=== PATIENT | female | born 1950 | race Caucasian/White ===

== ENCOUNTER → 2016-07-22 | Outpatient (CLI) | payer OTHER | LOC: BMCIMAGING 07:35 | PROVIDERS: ATTEND Family Medicine | DX: Z12.31 Encounter for screening mammogram for malignant neoplasm of breast (principal) | CPT/HCPCS: G0202 ==

== ENCOUNTER → 2016-11-28 | Outpatient (CLI) | payer OTHER | LOC: FIMAGING 16:01 | PROVIDERS: ATTEND Family Medicine | DX: R07.81 Pleurodynia (principal) ==

== ENCOUNTER → 2016-11-30 | Outpatient (CLI) | payer OTHER | LOC: FIMAGING 12:05 | PROVIDERS: ATTEND Family Medicine | DX: N64.4 Mastodynia (principal) ==

== ENCOUNTER 2016-12-05 12:35 | Inpatient (IN) | payer OTHER ==
--- NOTE | 2016-12-05 12:52 | CPEKG ---
Heart Rate: 81 RR Interval: 741 P-R Interval: 148 QRSD Interval: 96 QT Interval: 368 QTC Interval: 428 P Daisy: 64 QRS Daisy: 44 T Wave Daisy: 7 EKG Severity - ABNORMAL ECG - EKG Impression: SINUS RHYTHM EKG Impression: LEFT ATRIAL ABNORMALITY EKG Impression: BORDERLINE T ABNORMALITIES, ANTERIOR LEADS Electronically Signed By: Delia Westfall 05-Dec-2016 19:41:54
[2016-12-05 13:12] LABS: % IMMATURE GRANULYOCYTES 0.2 % (0.0-1.1); ABSOLUTE IMMATURE GRANULOCYTES 0.01 10^3/uL (0.00-0.10); ADD DIFF? NO; ADD MORPH? NO; ADD SCAN? NO; ATYPICAL LYMPHOCYTE FLAG 20 (0-99); FRAGMENT RBC FLAG 0 (0-99); HEMATOCRIT 42.6 % (38.0-47.0); HEMOGLOBIN 14.6 g/dL (12.6-16.3); LEFT SHIFT FLG 0 (0-99); LIPEMIA HEMOLYSIS FLAG 90 (0-99); MEAN CELL HEMOGLOBIN 30.7 pg (27.9-34.1); MEAN CELL HEMOGLOBIN CONCENTR. 34.3 g/dL (32.4-36.7); MEAN CELL VOLUME 89.7 fL (81.5-99.8); MEAN PLATELET VOLUME 10.5 fL (8.7-11.7); PLATELET CLUMPS FLAG 0 (0-99); PLATELET COUNT 184 10^3/uL (150-400); RED BLOOD CELL COUNT 4.75 10^6/uL (4.18-5.33); RED CELL DISTRIBUTION WIDTH 12.7 % (11.5-15.2)
--- NOTE | 2016-12-05 14:16 | EDPHY ---
H & P Time Seen by Provider: 12/05/16 13:58 HPI/ROS: CHIEF COMPLAINT: Chest pressure, left arm pain HISTORY OF PRESENT ILLNESS: 66-year-old female with a history of DVT, on Coumadin, presents with chest pressure and left arm pain. She was sitting at her desk at 9:45 a.m. this morning and developed a pressure in her left upper extremity, rated 6/10. She was unable to work because of the discomfort and went home. When she arrived here, she developed a pressure in her chest, rated 6/10. The chest pressure started approximately 45 minutes ago. No associated dizziness or shortness breath. No known history of cardiopulmonary disease. Cardiac risk factors positive for family history (father at 57yo after CABG ) and hyperlipidemia. Nonsmoker; no hypertension, diabetes. REVIEW OF SYSTEMS: Constitutional: No fever, no chills Eyes: No visual changes ENT: No sore throat Respiratory: No cough, no shortness of breath Gastrointestinal: No nausea, no vomiting, no abdominal pain Genitourinary: No hematuria, no dysuria Skin: No rash Neurological: No headache, no numbness, no weakness Psychiatric: No depression Past Medical/Surgical History: DVT Hypothyroidism Social History: Smoking Status: Never smoked Physical Exam: General Appearance: Alert, pleasant Eyes: Pupils equal and round, no conjunctival pallor or injection ENT, Mouth: Mucous membranes moist Neck: Normal inspection, no tenderness Respiratory: Lungs are clear to auscultation Cardiovascular: Regular rate and rhythm Gastrointestinal: Abdomen is soft and nontender Neurological: A&O, nonfocal, normal gait Skin: Warm and dry, no rash Extremities: left upper extremity-no swelling or tenderness Vascular: 1+ radial pulse, brisk capillary refill Psychiatric: Mood and affect normal Constitutional: Initial Vital Signs Temperature (C) 36.5 C 12/05/16 12:40 Heart Rate 82 12/05/16 12:40 Respiratory Rate 18 12/05/16 12:40 Blood Pressure 188/118 H 12/05/16 12:40 O2 Sat (%) 100 12/05/16 12:40 O2 Delivery Mode Room Air Allergies/Adverse Reactions: Trees & grasses Allergy (Intermediate, Uncoded 06/30/10 11:28) allergic rhinitis Home Medications: Medication Instructions Recorded Bupropion HCl [Wellbutrin XL 300mg] 300 mg PO DAILY 03/23/12 Alendronate Sodium [Fosamax 70 MG 70 mg PO STEWART@0700 12/05/16 (*)] Calcium Carbonate [Calcium] 1,000 mg PO DAILY 12/05/16 Cetirizine [ZyrTEC 10 mg (*)] 10 mg PO DAILY 12/05/16 Herbals/Supplements -Info Only 1 ea PO DAILY 12/05/16 Levothyroxine [Synthroid 88 mcg 88 mcg PO DAILY06 12/05/16 (*)] Warfarin Sodium [Coumadin 5MG (*)] 7.5 mg PO HS 12/05/16 traZODone [traZODONE 50MG (*)] 50 mg PO HS 12/05/16 Medical Decision Making - Diagnostics EKG Interpretation: EKG interpreted by me reveals normal sinus rhythm, rate 81, P T-wave changes in leads 3, AVF, V3 and V4. Imaging Results: Imaging Impressions Chest X-Ray 12/05/16 12:51 Impression: Clear lungs. No pneumonia, effusion, or pneumothorax. ED Course/Re-evaluation: This patient presents with chest and left arm pressure, concerning for acute coronary syndrome. Stat EKG reveals no evidence of ischemia or dysrhythmia. Stat chest x-ray is unremarkable. She was placed on a cardiac surgeon. Given that she is on Coumadin, she was not placed on aspirin. She declined pain medications. Initial troponin is normal. I feel that she requires admission for further cardiac evaluation. The hospitalist service was consulted for admission. Differential Diagnosis: Differential diagnosis includes though it is not limited to pneumonia, pneumothorax, pulmonary embolism, aortic dissection, pericarditis, acute coronary syndrome. - Data Points Laboratory Results: Laboratory Results 12/05/16 13:00 12/05/16 13:00 12/05/16 12/05/16 12/05/16 13:00 13: 13:00 WBC 4.10 10^3/uL 10^3/uL (3.80-9.50) RBC 4.75 10^6/uL 10^6/uL (4.18-5.33) Hgb 14.6 g/dL g/dL (12.6-16.3) Hct 42.6 % % (38.0-47.0) MCV 89.7 fL fL (81.5-99.8) MCH 30.7 pg pg (27.9-34.1) MCHC 34.3 g/dL g/dL (32.4-36.7) RDW 12.7 % % (11.5-15.2) Plt Count 184 10^3/uL 10^3/uL (150-400) MPV 10.5 fL fL (8.7-11.7) Neut % (Auto) 56.0 % % (39.3-74.2) Lymph % (Auto) 31.5 % % (15.0-45.0) [place] % (Auto) 8.8 % % (4.5-13.0) Eos % (Auto) 2.0 % % (0.6-7.6) Baso % (Auto) 1.5 % % (0.3-1.7) Nucleat RBC Rel Count 0.0 % % (0.0-0.2) Absolute Neuts (auto) 2.30 10^3/uL 10^3/uL (1.70-6.50) Absolute Lymphs (auto) 1.29 10^3/uL 10^3/uL (1.00-3.00) Absolute Monos (auto) 0.36 10^3/uL 10^3/uL (0.30-0.80) Absolute Eos (auto) 0.08 10^3/uL 10^3/uL (0.03-0.40) Absolute Basos (auto) 0.06 10^3/uL 10^3/uL (0.02-0.10) Absolute Nucleated RBC 0.00 10^3/uL 10^3/uL (0-0.01) Immature Gran % 0.2 % % (0.0-1.1) Immature Gran # 0.01 10^3/uL 10^3/uL (0.00-0.10) PT 25.3 SEC H SEC (12.0-15.0) INR 2.28 H (0.83-1.16) Sodium 139 mEq/L mEq/L (134-144) Potassium 3.8 mEq/L mEq/L (3.5-5.2) Chloride 103 mEq/L mEq/L (97-110) Carbon Dioxide 22 mEq/l mEq/l (22-31) Anion Gap 14 mEq/L mEq/L (8-16) BUN 16 mg/dL mg/dL (7-23) Creatinine 1.0 mg/dL mg/dL (0.6-1.0) Estimated GFR 56 Glucose 99 mg/dL mg/dL (70-100) Calcium 10.1 mg/dL mg/dL (8.5-10.4) Troponin I < 0.012 ng/mL ng/mL (0.000-0.034) Departure - Departure Disposition: [facility] Inpatient Acute Clinical Impression: Chest pain Qualifiers: Chest pain type: precordial pain Qualified Code(s): R07.2 - Precordial pain Condition: Good
[2016-12-05 14:25] LABS: INR 2.28 (0.83-1.16); PROTIME(PATIENT) 25.3 SEC (12.0-15.0)
[2016-12-05 14:31] LABS: ANION GAP 14 mEq/L (8-16); CALCIUM 10.1 mg/dL (8.5-10.4); CARBON DIOXIDE 22 mEq/l (22-31); CHLORIDE 103 mEq/L (97-110); GLOMERULAR FILTRATION RATE 56; GLUCOSE 99 mg/dL (70-100); POTASSIUM 3.8 mEq/L (3.5-5.2); SODIUM 139 mEq/L (134-144)
[2016-12-05 14:42] LABS: TROPONIN I < 0.012 ng/mL (0.000-0.034)
[2016-12-05] MEDS ORDERED: ACETAMINOPHEN 325 MG TAB PO PRN (15:29)
[2016-12-05] MEDS ORDERED: ONDANSETRON DISINTEGRATING 4 MG TAB PO PRN (15:29)
[2016-12-05] MEDS ORDERED: ONDANSETRON 4 MG/2 ML VIAL IVP PRN (15:29)
[2016-12-05] MEDS ORDERED: hydrALAZINE 20 MG/ML VIAL IVP PRN (17:16)
--- NOTE | 2016-12-05 17:58 | GHP ---
[f rep st] HISTORY AND PHYSICAL DATE OF ADMISSION: 12/05/2016 CHIEF COMPLAINT: Chest pain. HISTORY: This is a 66-year-old female with past medical history that includes a DVT, as well as unco ntrolled hypertension and hyperlipidemia, who presents with acute onset of substernal chest pain. Reinaldo sanders patient notes it began this morning at approximately 9:30 a.m. while she was sitting at her desk. Initially felt like "elephant" on her chest with radiation to her left arm. She notes that the pain in her arm felt very dull and deep. She denied any associated nausea or diaphoresis. She did feel s hort of breath and lightheaded during this episode. She notes it lasted several hours, but has resol delbert since arrival in the ER this afternoon. She does note that her blood pressure has been elevated for quite some time. It sounds as if she maybe did not have very good care established up until rece ntly. She notes that she had a physical exam in November, at which time she was told that she has a very high cholesterol, and also was noted to have elevated blood pressures. She notes that she has been checking her blood pressure at home, and it is always at least 240 systolic. She states that too sanders thought her primary care physician wanted to start her on some medication, but agreed to allow her to continue to try to improve it with diet and exercise. She notes she has never had similar symptom s in the past in terms of her chest pain. She did have a stress test she believes approximately 15 y ears ago, which was normal. PAST MEDICAL HISTORY: 1. Lower extremity DVT, on chronic anticoagulation. 2. Hypothyroidism. 3. Untreated hyperlipidemia. 4. Untreated hypertension. PAST SURGICAL HISTORY: Vein ablation. FAMILY HISTORY: Father at age 57 shortly after undergoing a 3-vessel CABG. Mother is alive and well at age 99. SOCIAL HISTORY: The patient is . She is a nonsmoker. She does drink socially. She has 3 ch ildren. REVIEW OF SYSTEMS: A 10-point review of systems obtained negative except as per HPI. HOME MEDICATIONS: 1. Zyrtec. 2. Coumadin. 3. Fosamax. 4. Trazodone. 5. Synthroid. 6. Calcium. 7. Bupropion. ALLERGIES: No known drug allergies. PHYSICAL EXAM: VITAL SIGNS: BP 168/96, heart rate 93, respiratory rate 16, O2 sats 100% on room air , temperature is 36.5. GENERAL APPEARANCE: This is a well-developed/well-nourished female. She is awake and alert. She is in no acute distress. EYES: Anicteric. HENT: Oropharynx clear. CARDIOVA SCULAR: Regular rate and rhythm, no murmurs, rubs, or gallops. PULMONARY: CTA bilaterally. Normal work of breathing. ABDOMEN: Soft, nontender, nondistended. EXTREMITIES: No clubbing, cyanosis, o r edema. SKIN: Warm dry well perfused. NEURO/PSYCH: Oriented and appropriate. CLINICAL DATA: CBC reviewed and is completely unremarkable. INR noted to be 2.28. Chemistry, likew ise, unremarkable. Initial troponins less than 0.012. The patient did have a cholesterol panel 2 we eks ago showing an LDL of 209, HDL of 57. Chest x-ray, personally reviewed and interpreted, shows no acute findings. EKG personally reviewed a nd interpreted shows sinus rhythm. Borderline T-wave flattening anteriorly. ASSESSMENT/PLAN: This is a 66-year-old female with past medical history of DVT, as well as uncontrol led hypertension and hyperlipidemia, who presents with chest pain. 1. Chest pain. The patient does have risk factors including family history, uncontrolled hypertensi on, and hyperlipidemia. Initial workup including troponin and EKG are nondiagnostic. Her history, h owever, is concerning. At this point, plan will be to monitor on telemetry with serial EKGs and trop onins. We will obtain a nuclear stress test in the morning should she not have any increased troponi ns overnight. 2. Hypertension. Again, this has been uncontrolled. She notes that she has had high blood pressure for at least months, if not longer, that has never been on medications. We will start lisinopril an d p.r.n. hydralazine. 3. Hyperlipidemia. Again, with an LDL of 209 I do not believe this will be controllable with diet a lone. Discussed with her that at this point would recommend she start a statin, and she is amenable to that. 4. History of deep vein thrombosis. The patient currently therapeutic on her Coumadin, which will b e continued. 5. Disposition: Observation status. I suspect she will need less than 48 hours stay for evaluation and management of above. 6. The patient is new to my care. Old records reviewed, summarized as per HPI and past medical hist ory. Care plan reviewed with ER physician, including plans for admission to telemetry. /[id number]/MODL
[2016-12-05 20:55] LABS: HEMOGLOBIN A1C 5.3 % (4.0-6.0)
[2016-12-05] MEDS: traZODone 50 MG TAB PO SCH (20:59)
[2016-12-05] MEDS ORDERED: WARFARIN SODIUM 5 MG TAB PO SCH (21:00)
[2016-12-06 04:11] LABS: % IMMATURE GRANULYOCYTES 0.2 % (0.0-1.1); ABSOLUTE IMMATURE GRANULOCYTES 0.01 10^3/uL (0.00-0.10); ADD DIFF? NO; ADD MORPH? NO; ADD SCAN? NO; ATYPICAL LYMPHOCYTE FLAG 10 (0-99); FRAGMENT RBC FLAG 0 (0-99); HEMATOCRIT 38.6 % (38.0-47.0); HEMOGLOBIN 13.2 g/dL (12.6-16.3); LEFT SHIFT FLG 0 (0-99); LIPEMIA HEMOLYSIS FLAG 90 (0-99); MEAN CELL HEMOGLOBIN 30.5 pg (27.9-34.1); MEAN CELL HEMOGLOBIN CONCENTR. 34.2 g/dL (32.4-36.7); MEAN CELL VOLUME 89.1 fL (81.5-99.8); MEAN PLATELET VOLUME 10.7 fL (8.7-11.7); PLATELET CLUMPS FLAG 0 (0-99); PLATELET COUNT 176 10^3/uL (150-400); RED BLOOD CELL COUNT 4.33 10^6/uL (4.18-5.33); RED CELL DISTRIBUTION WIDTH 12.8 % (11.5-15.2)
[2016-12-06 04:27] LABS: INR 2.31 (0.83-1.16); PROTIME(PATIENT) 25.6 SEC (12.0-15.0)
[2016-12-06 04:31] LABS: ALANINE AMINOTRANSFERASE 33 IU/L (9-52); ALKALINE PHOSPHATASE 33 IU/L (38-126); ANION GAP 10 mEq/L (8-16); ASPARTATE AMINOTRANSFERASE 20 IU/L (14-46); BILIRUBIN,TOTAL 1.3 mg/dL (0.1-1.4); CALCIUM 9.3 mg/dL (8.5-10.4); CARBON DIOXIDE 19 mEq/l (22-31); CHLORIDE 111 mEq/L (97-110); GLOMERULAR FILTRATION RATE 56; GLUCOSE 88 mg/dL (70-100); MAGNESIUM 2.1 mg/dL (1.6-2.3); POTASSIUM 4.3 mEq/L (3.5-5.2); SODIUM 140 mEq/L (134-144); TOTAL PROTEIN 6.6 g/dL (6.3-8.2)
[2016-12-06 04:41] LABS: TROPONIN I < 0.012 ng/mL (0.000-0.034)
[2016-12-06] MEDS: LEVOTHYROXINE 88 MCG TAB PO SCH (06:33)
[2016-12-06] MEDS: CETIRIZINE 10 MG TAB PO SCH (08:45)
[2016-12-06] MEDS ORDERED: LISINOPRIL 10 MG TAB PO SCH (09:00)
[2016-12-06] MEDS ORDERED: ASPIRIN EC 325 MG TAB PO SCH (09:00)
[2016-12-06] MEDS: ATORVASTATIN CALCIUM 40 MG TAB PO SCH (09:59)
[2016-12-06] MEDS: buPROPion XL 150 MG TAB PO SCH (09:59)
[2016-12-06] MEDS: CALCIUM CARBONATE 500 MG TAB PO SCH (09:59)
--- NOTE | 2016-12-06 12:12 | ASMTCMCOM ---
CM Note CM Note Notes: 12/06/2016 Case Management Note: Met w/pt. 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 Plans for to take home at d/c. No case management d/c needs identified d/t pt age and activity levels prior to admission. Case Managment d/c poc: Home independent w/follow up as directed by . Date Signed: 12/06/2016 12:11 PM Electronically Signed By:Lurdes Vance RN
[2016-12-06] MEDS ORDERED: REGADENOSON 0.4 MG/5 ML SYR IVP ONE (12:44)
--- NOTE | 2016-12-06 16:12 | HOSPPROG ---
Hospitalist Progress Note Assessment/Plan: 66 yo F with PMH of DVT, HTN, HLD and family hx of early onset CAD presenting with chest pain # chest pain: with both typical and atypical features. Trops negative, no ischemic changes on ECG. Discussed with radiology, ? small infarct inferolateral wall of LV with small amount of rishi infarct ischemia suspected. Discussed with cardiology who will see patient in consultation and determine if she requires cath for further evaluation. # DVT: patient currently on anticoagulation for this, has had a hx of superficial clot in the past as well, she states that everyone in her family has hx of clotting, generally after surgery or injury, but no known familial hypercoagulable state. # HTN: was quite hypertensive on arrival but today BP is in the low normal range , will hold off on starting any scheduled bp meds and have her continue to f/u with her PCP # HLD: with a LDL > 200 patient will require statin to get this down, started on atorvastatin # hypothyroid: continue synthroid # observation for now, if cardiology feels angiogram is indicated will need to transition to IP Plan reviewed with cardiology and radiology as above. Subjective: no acute overnight events, patient feeling better today Objective: Vital Signs Temp Pulse Resp BP Pulse Ox 36.8 C 84 14 125/83 H 92 12/06/16 15:20 12/06/16 15:20 12/06/16 15:20 12/06/16 15:20 12/06/16 15:20 Laboratory Results 12/06/16 03:46 12/06/16 03:46 12/05/16 12/06/16 12/07/16 05:59 05:59 05:59 Intake Total 520 200 Balance 520 200 PT 25.6 SEC (12.0-15.0) H 12/06/16 03:46 INR 2.31 (0.83-1.16) H 12/06/16 03:46 awake alert nad anicteric op clear rrr no mrg cta b soft nt nd no cce warm dry well perfused ICD10 Worksheet Patient Problems: Problems Problem Status Onset Chest pain Acute
--- NOTE | 2016-12-06 17:30 | CPR ---
[f rep st] NONINVASIVE CARDIAC PROCEDURE REPORT PROCEDURE: Lexiscan nuclear stress test. ORDERING PHYSICIAN: Dr. Errol Duque, hospitalist. REASON FOR TEST: Chest discomfort. FINDINGS: Resting EKG shows a regular sinus rhythm with no ischemic changes. Resting blood pressure 128/76, resting heart rate 74, oxygen saturation 96%. She complains of a mild headache prior to emily ting, otherwise asymptomatic. STRESS PORTION: Lexiscan was injected rapidly, followed by saline flush. Cardiolite was then inject ed, followed by saline flush. Her maximum heart rate was 102, maximum blood pressure 120/76. Oxygen saturation 98%. She had increase in headache, otherwise, asymptomatic. No EKG changes. RECOVERY: Resting blood pressure 120/76, resting heart rate 94, oxygen sat saturation 97%. There we re no EKG changes. At this time, she currently is stable for nuclear imaging. /[id number]/MODL
--- NOTE | 2016-12-06 19:23 | PDCARPN ---
Cardiology Progress Note Assessment/Plan: Assessment: Chest pain with Lexiscan today showing area of inferolateral suspect ischemia. Mild hypokinesis inferior wall. Small inferiolateral rishi-infarct ischemia suspect. Plan for cardiac angiogram. She is on Coumadin for DVT. INR today 2.3. Will need to drift INR down to 1.7 prior to cath. HOLD Coumadin. Will check INR in the AM. Plan Cath for 12/08 with Errol Cintron MD. Plan: HOLD Coumadin. Once INR 1.7 will cath. INR in AM. 12/06/16 19:18 Objective: Vital Signs (8 Hrs) Temp Pulse Resp BP Pulse Ox 12/06/16 15:20 36.8 C 84 14 125/83 H 92 12/06/16 11:34 36.6 C 80 12 115/74 95 Intake/Output (24 Hrs) 12/05/16 12/06/16 12/07/16 05:59 05:59 05:59 Intake Total 520 800 Balance 520 800 Intake: Oral (ml) 520 800 Other: Weight 67.585 kg 67 kg Intake Quantity Yes Sufficient Number of Voids Toilet 1 Result Diagrams: 12/06/16 03:46 12/06/16 03:46 Cardiac Labs: Cardiac Lab Results (72 Hrs) 12/06/16 12/05/16 03:46 20:36 Troponin I < 0.012 < 0.012 - Physical Exam Constitutional: no apparent distress Cardiovascular: regular rate and rhythm, no murmurs, no gallops Respiratory: clear to auscultate bilat, no crackles, no wheezes Skin: no rashes, warm, no edema Neurologic: AAOx3, CN II-XII grossly intact Psychiatric: cooperative, interactive ICD10 Worksheet Patient Problems: Problems Problem Status Onset Chest pain Acute
--- NOTE | 2016-12-06 21:16 | GCON ---
[f rep st] CONSULTATION CARDIOLOGY CONSULTATION DATE OF CONSULTATION: 12/06/2016 REASON FOR CONSULTATION: Chest pain with abnormal nuclear stress test. HISTORY OF PRESENT ILLNESS: This is a 66-year-old female, with a history of DVTs, hypertension, hype rlipidemia. She presented to the hospital with acute onset of substernal chest pain. It had started early in the morning of December 05, 2016, while at work. She described it as feeling as if an elepha nt was on her chest, with associated left arm pain. She had no nausea or sweating. She did feel sli ghtly short of breath. This discomfort persisted for several hours and she presented to the emergenc y department for further evaluation. She had a recent physical with her PCP, and was told at that time that her cholesterol levels were el evated, as well as her blood pressure, which has been a long-standing problem. She had been started on medication by her primary care physician; however, she decided she preferred trying diet and exerc ise to manage her hypertension and hyperlipidemia. She is anxious about her chest discomfort, as she does have a family history of coronary artery disease. Her father at age 57 after having a cor onary artery bypass grafting surgery. She did have a nuclear stress test done, which does show hypokinesis of the inferior wall. There is a suspicious small area of infarct of the inferolateral wall, and a small amount of periinfarct ische claudy. At time of visit, she is in no distress and is painfree. FAMILY HISTORY: Her father of coronary artery disease at age 57, he had a history of 3-vessel b ypass surgery. PAST MEDICAL HISTORY: 1. DVT of her right lower extremity. Appropriately, she is on chronic anticoagulation. 2. Hypothyroid. 3. Hypertension. 4. Hyperlipidemia. PAST SURGICAL HISTORY: Vein ablation. SOCIAL HISTORY: She is . She has 3 children. She drinks alcohol socially and has never smok ed. REVIEW OF SYSTEMS: A 10-point review of systems negative except for that in the HPI. MEDICATIONS: She is on Zyrtec, Coumadin, Fosamax, trazodone, Synthroid, and calcium. PHYSICAL EXAMINATION: VITAL SIGNS: Blood pressure 125/83, heart rate 84 and regular, oxygen saturat ion 92%, temperature 36.8. HEART: Rate regular. No murmurs, rubs, gallops. LUNGS: Sounds are mario ar to auscultation. No wheezes, rales, or rhonchi. GENERAL: She is alert and oriented, in no acute distress. HEENT: Oropharynx is clear. Eyes: Conjunctivae clear. ABDOMEN: Soft and nontender. EXTREMITIES: No rashes, cyanosis, or edema. NEUROLOGIC: Gait is normal. PSYCHIATRIC: She is orie nted with a good disposition. LABORATORY DATA: Coagulation: INR on 12/06/2016: 2.31. Chemistry: Sodium 140, potassium 4.3, BUN 15, creatinine 1.0, GFR 56, glucose 88, magnesium 2.1. AST 20, ALT 33, alkaline phosphate 33. Trop onin negative x3. TSH 0.409. DIAGNOSTIC STUDIES: Chest x-ray, on 12/05/2016, showed lungs clear. No pneumonia, effusion or pneum othorax. EKG, 12/05/2016, showed a sinus rhythm with a heart rate of 81, T-wave abnormality anterior ly. 12/06/2016, nuclear myocardial perfusion stress test with Lexiscan. IMPRESSION: 1. Normal left ventricular ejection fraction of 64%. 2. Mild hypokinesis inferior wall left ventricle, otherwise no significant focal wall motion abnorma lities. 3. Findings suspicious for small area of infarct inferolateral wall left ventricle, with a small fredy unt of periinfarct ischemia suspected. RECOMMENDATION: The results of the myocardial perfusion test were reviewed with Dr. Errol Cintron. Hi s recommendation is to proceed with a cardiac angiogram to further evaluate for the areas of inferola teral infarct and periinfarct ischemia. She is on Coumadin therapy due to a history of DVT. Her INR today is 2.31. Dr. Cintron recommends al lowing her INR to drift down to 1.7 before cardiac angiogram performed. PLAN: We will plan to hold her Coumadin starting 12/06/2016, and check PT/INRs in the a.m. Once her INR is to the 1.7 point, we will proceed with cardiac angiogram. This was discussed with both she and her with good understanding. We will plan to reevaluate in the morning. She will remain n.p.o. overnight, with further recommendations once lab is evaluate d in the morning. This plan was discussed with Dr. Kelle Lira, hospitalist, and with the nursing staff. At this time, she is currently stable. Thank you very much for allowing us to be part of this patient's care. /[id number]/CHAPINCITO
[2016-12-06] MEDS: traZODone 50 MG TAB PO SCH (21:24)
[2016-12-07 05:47] LABS: CHOLESTEROL 232 mg/dL (140-220); CHOLESTEROL/HDL RATIO 6.11 RATIO (1.00-4.44); HIGH DENSITY LIPOPROTEIN 38 mg/dL (40-85); LDL/HDL RATIO 4.39 RATIO (1.00-3.22); LOW DENSITY LIPOPROTEIN 167 mg/dL (80-100); NON-HIGH DENSITY LIPOPROTEIN 194 mg/dL (90-129); TRIGLYCERIDE 137 mg/dL (35-135); VERY LOW DENSITY LIPOPROTEINS 27 mg/dL (8-25)
[2016-12-07 05:57] LABS: APTT 36.5 SEC (23.0-38.0); INR 3.67 (0.83-1.16); PROTIME(PATIENT) 37.1 SEC (12.0-15.0)
[2016-12-07] MEDS: LEVOTHYROXINE 88 MCG TAB PO SCH (09:12)
[2016-12-07 09:40] LABS: INR 2.36 (0.83-1.16)
[2016-12-07] MEDS ORDERED: PHYTONADIONE 2.5 MG/2.5 ML ORAL UDL PO ONE (10:17)
[2016-12-07] MEDS: CALCIUM CARBONATE 500 MG TAB PO SCH (10:37)
[2016-12-07] MEDS: buPROPion XL 150 MG TAB PO SCH (10:37)
[2016-12-07] MEDS: ATORVASTATIN CALCIUM 40 MG TAB PO SCH (10:37)
[2016-12-07] MEDS: CETIRIZINE 10 MG TAB PO SCH (10:38)
--- NOTE | 2016-12-07 14:58 | PDMN ---
Medical Necessity Medical necessity: status changed per MD for ongoing med nec. further eval and tx -suspect ischemia with cardiac cath nec. need INR to trend downward prior to cath current 2.3 -optimal 1.7 for cath. M40 angina- Lexiscan showing area of inferolateral rishi-infarct ischemia suspect.
--- NOTE | 2016-12-07 15:04 | HOSPPROG ---
Hospitalist Progress Note Assessment/Plan: 66 yo F with PMH of DVT, HTN, HLD and family hx of early onset CAD presenting with chest pain # chest pain: with both typical and atypical features. Trops negative, no ischemic changes on ECG but stress test concerning for infarct and ischemia. Plan is for cath in the am, INR elevated so holding warfarin and plan for cath in am. Discussed with cardiology. # DVT: patient currently on anticoagulation for this, has had a hx of superficial clot in the past as well, no known familial hypercoagulable state. INR supratherapeutic today after holding coumadin yesterday, given low dose vitamin K, continue to hold warfarin # HTN: was quite hypertensive on arrival but today BP is in the low normal range , will hold off on starting any scheduled bp meds and have her continue to f/u with her PCP # HLD: with a LDL > 200 patient will require statin to get this down, started on atorvastatin # hypothyroid: continue synthroid # IP status, will need > 48 hours stay for eval/mgmt of above given need for cardiac angiography as above. Subjective: no significant overnight events, patient is feeling well today, no chest pain overnight Objective: Vital Signs Temp Pulse Resp BP Pulse Ox 36.4 C 74 11 L 116/75 90 L 12/07/16 12:00 12/07/16 12:00 12/07/16 12:00 12/07/16 12:00 12/07/16 12:00 Laboratory Results 12/06/16 03:46 12/06/16 03:46 12/06/16 12/07/16 12/08/16 05:59 05:59 05:59 Intake Total 520 1150 Balance 520 1150 PT 26.0 SEC (12.0-15.0) H D 12/07/16 09:22 INR 2.36 (0.83-1.16) H 12/07/16 09:22 awake alert nad anicteric op clear rrr no mrg cta b soft nt nd no cce warm dry well perfused - Time Spent With Patient Time Spent with Patient: greater than 35 minutes Time Spent with Patient: Greater than 35 minutes spent on this patients care, greater than 50% of time spent counseling, educating, and coordinating care regarding the above mentioned plan. ICD10 Worksheet Patient Problems: Problems Problem Status Onset Chest pain Acute
--- NOTE | 2016-12-07 16:46 | PDCARPN ---
Cardiology Progress Note Assessment/Plan: Assessment: Chest pain with Lexiscan today showing area of inferolateral suspect ischemia. Mild hypokinesis inferior wall. Small inferiolateral rishi-infarct ischemia suspect. Plan for cardiac angiogram. She is on Coumadin for DVT. INR today 2.3. Will need to drift INR down to 1.7 prior to cath. HOLD Coumadin. Will check INR in the AM. Plan Cath for 12/08 with Errol Cintron MD. Plan: HOLD Coumadin. Once INR 1.7 will cath. INR in AM. 12/06/16 19:18 12/07/16 16:39 INR this AM 3.2, Repeat test this AM 2.36. Coumadin is on HOLD. Vitamin K 2.5 mg was given to assist in lowering her INR for Cardiac Angiogram in AM. Dr Cintron would like INR 1.7 or less at time of the cath. DVT history and has been on chronic Coumadin therapy compliantly. Will get 4pm INR and if below 2 will give Heparin for anticoagulation. This was discussed with Velma with good understanding. Discussed plan with Dr Christophe REYES for hospitalist. Result Diagrams: 12/06/16 03:46 12/06/16 03:46 - Physical Exam Constitutional: no apparent distress Cardiovascular: regular rate and rhythm, no murmurs, no rubs Respiratory: clear to auscultate bilat, no crackles, no wheezes Skin: warm, no edema Neurologic: AAOx3 Psychiatric: cooperative, interactive ICD10 Worksheet Patient Problems: Problems Problem Status Onset Chest pain Acute
[2016-12-07 17:15] LABS: APTT 34.1 SEC (23.0-38.0); INR 2.02 (0.83-1.16)
[2016-12-07] MEDS ORDERED: TEMAZEPAM 15 MG CAP PO PRN (17:30)
[2016-12-07] MEDS ORDERED: DIAZEPAM 5 MG TAB PO ONE (17:30)
[2016-12-07] MEDS ORDERED: FAMOTIDINE 20 MG TAB PO ONE (17:30)
[2016-12-07] MEDS ORDERED: ASPIRIN EC 325 MG TAB PO ONE (17:30)
[2016-12-07] MEDS ORDERED: NITROGLYCERIN 0.4 MG BTL SL PRN (17:30)
[2016-12-07] MEDS ORDERED: ACETAMINOPHEN 325 MG TAB PO PRN (17:30)
[2016-12-07] MEDS ORDERED: NS 1,000 ML IV SCH (17:30)
[2016-12-07] MEDS ORDERED: diphenhydrAMINE 25 MG CAP PO ONE (17:30)
[2016-12-07] MEDS ORDERED: WARFARIN SODIUM 5 MG TAB PO SCH (21:00)
[2016-12-07] MEDS: traZODone 50 MG TAB PO SCH (22:02)
[2016-12-08 04:48] LABS: % IMMATURE GRANULYOCYTES 0.2 % (0.0-1.1); ABSOLUTE IMMATURE GRANULOCYTES 0.01 10^3/uL (0.00-0.10); ADD DIFF? NO; ADD MORPH? NO; ADD SCAN? NO; ATYPICAL LYMPHOCYTE FLAG 0 (0-99); FRAGMENT RBC FLAG 0 (0-99); HEMATOCRIT 38.1 % (38.0-47.0); LEFT SHIFT FLG 0 (0-99); LIPEMIA HEMOLYSIS FLAG 90 (0-99); MEAN CELL HEMOGLOBIN 30.7 pg (27.9-34.1); MEAN CELL HEMOGLOBIN CONCENTR. 34.1 g/dL (32.4-36.7); MEAN CELL VOLUME 90.1 fL (81.5-99.8); PLATELET CLUMPS FLAG 0 (0-99); PLATELET COUNT 159 10^3/uL (150-400); RED BLOOD CELL COUNT 4.23 10^6/uL (4.18-5.33); RED CELL DISTRIBUTION WIDTH 12.8 % (11.5-15.2)
[2016-12-08 04:58] LABS: APTT 31.4 SEC (23.0-38.0); INR 1.55 (0.83-1.16); PROTIME(PATIENT) 18.6 SEC (12.0-15.0)
[2016-12-08 04:59] LABS: ANION GAP 10 mEq/L (8-16); CALCIUM 9.4 mg/dL (8.5-10.4); CARBON DIOXIDE 20 mEq/l (22-31); CHLORIDE 108 mEq/L (97-110); CHOLESTEROL 204 mg/dL (140-220); CHOLESTEROL/HDL RATIO 5.83 RATIO (1.00-4.44); GLOMERULAR FILTRATION RATE 56; GLUCOSE 92 mg/dL (70-100); HIGH DENSITY LIPOPROTEIN 35 mg/dL (40-85); LDL/HDL RATIO 3.97 RATIO (1.00-3.22); LOW DENSITY LIPOPROTEIN 139 mg/dL (80-100); NON-HIGH DENSITY LIPOPROTEIN 169 mg/dL (90-129); SODIUM 138 mEq/L (134-144); TRIGLYCERIDE 152 mg/dL (35-135); VERY LOW DENSITY LIPOPROTEINS 30 mg/dL (8-25)
[2016-12-08] MEDS ORDERED: diphenhydrAMINE 25 MG CAP PO ONE ×2 (06:00→10:10)
[2016-12-08] MEDS ORDERED: DIAZEPAM 5 MG TAB PO ONE (06:00)
[2016-12-08] MEDS ORDERED: FAMOTIDINE 20 MG TAB PO ONE (06:00)
[2016-12-08] MEDS ORDERED: ASPIRIN EC 325 MG TAB PO ONE ×2 (06:00→10:17)
--- NOTE | 2016-12-08 06:33 | CPEKG ---
Heart Rate: 74 RR Interval: 811 P-R Interval: 164 QRSD Interval: 94 QT Interval: 392 QTC Interval: 435 P Epsom: 69 QRS Epsom: 70 T Wave Epsom: 8 EKG Severity - BORDERLINE ECG - EKG Impression: SINUS RHYTHM EKG Impression: PROBABLE LEFT ATRIAL ABNORMALITY EKG Impression: BORDERLINE T ABNORMALITIES, ANTERIOR LEADS Electronically Signed By: Rupesh Espinosa 08-Dec-2016 08:14:16
[2016-12-08] MEDS: CALCIUM CARBONATE 500 MG TAB PO SCH (08:28)
[2016-12-08] MEDS: ATORVASTATIN CALCIUM 40 MG TAB PO SCH (08:29)
[2016-12-08] MEDS: buPROPion XL 150 MG TAB PO SCH (08:29)
[2016-12-08] MEDS: CETIRIZINE 10 MG TAB PO SCH (08:30)
--- NOTE | 2016-12-08 10:04 | PDCARPN ---
Cardiology Progress Note Chief Complaint: Chest Pain Assessment/Plan: Assessment: Chest pain with Lexiscan today showing area of inferolateral suspect ischemia. Mild hypokinesis inferior wall. Small inferiolateral rishi-infarct ischemia suspect. Plan for cardiac angiogram. She is on Coumadin for DVT. INR today 2.3. Will need to drift INR down to 1.7 prior to cath. HOLD Coumadin. Will check INR in the AM. Plan Cath for 12/08 with Errol Cintron MD. Plan: HOLD Coumadin. Once INR 1.7 will cath. INR in AM. 12/06/16 19:18 12/07/16 16:39 INR this AM 3.2, Repeat test this AM 2.36. Coumadin is on HOLD. Vitamin K 2.5 mg was given to assist in lowering her INR for Cardiac Angiogram in AM. Dr Cintron would like INR 1.7 or less at time of the cath. DVT history and has been on chronic Coumadin therapy compliantly. Will get 4pm INR and if below 2 will give Heparin for anticoagulation. This was discussed with Velma with good understanding. Discussed plan with Dr Christophe REYES for hospitalist. 12/08/16 10:04 INR this morning 1.5. Sr Cintron sat down and visited with her about cath, conceers related to Nuc result, and Strong family history of CAD in Family. Risks and benefits were discussed. She asked appropriate questions, and all questions answered. She is in agreement to proceed with cardiac angiogram. Her will arrive in time for the procedure. She has no chest pain today. 12/08/16 15:08 Post cardiac angiogram. Resting well with no new problems. Angiogram revealed no disease. Groin site intact, no bleeding, discomfort, or induration. DVT Plan: start Heparin at 6 pm, Will restart Coumadin this afternoon. Plan for discharge in AM. Subjective: No chest pain. Legs feel tight. NO PAin Reviewed/Discussed With: family, hospitalist, multidisciplinary team Objective: Vital Signs (8 Hrs) Temp Pulse Resp BP Pulse Ox 12/08/16 08:00 36.5 C 79 17 112/82 H 92 12/08/16 04:00 36.7 C 78 16 102/65 92 Intake/Output (24 Hrs) 12/07/16 12/08/16 12/09/16 05:59 05:59 05:59 Intake Total 350 Balance 350 Intake: Oral (ml) 350 Other: Intake Quantity Yes Sufficient Result Diagrams: 12/08/16 03:28 12/08/16 03:28 - Physical Exam Constitutional: no apparent distress Cardiovascular: regular rate and rhythm, no murmurs, no rubs Respiratory: clear to auscultate bilat, no crackles, no wheezes Skin: warm, no edema Neurologic: AAOx3 Psychiatric: cooperative, interactive ICD10 Worksheet Patient Problems: Problems Problem Status Onset Chest pain Acute
[2016-12-08] MEDS ORDERED: FAMOTIDINE 20 MG TAB ONE (10:11)
[2016-12-08] MEDS ORDERED: ASPIRIN 325 MG TAB ONE (10:11)
[2016-12-08] MEDS ORDERED: DIAZEPAM 5 MG TAB ONE (10:11)
[2016-12-08] MEDS ORDERED: LIDOCAINE 1% 300 MG/30 ML SDV ONE (10:31)
[2016-12-08] MEDS ORDERED: fentaNYL 100 MCG/2 ML INJ ONE (10:32)
[2016-12-08] MEDS ORDERED: MIDAZOLAM 2 MG/2 ML VIAL ONE (10:32)
[2016-12-08] MEDS ORDERED: IOPAMIDOL (ISOVUE-370) 150 ML BTL IV ONE (10:32)
[2016-12-08] MEDS: LEVOTHYROXINE 88 MCG TAB PO SCH (10:54)
--- NOTE | 2016-12-08 10:54 | PDHPUP ---
History & Physical Update H&P update statement: This history and physical update is based on an assessment of the patient which was completed after admission or registration (within 24 hours), but prior to the surgery/procedure. H&P update: H&P reviewed & patient examined, no change in patient's condition since H&P completed
--- NOTE | 2016-12-08 10:54 | PDPROPOC ---
Sedation Plan of Care Sedation Plan of Care: vital signs stable, mental status noted, patient educated of risks, benefits, alternatives, patient can tolerate sedation ASA Classification: ASA 2 Planned drugs: fentanyl, midazolam Mallampati Score: Class 1 Mallampati Reference Image: Patient passed 3-3-2 rule?: Yes
[2016-12-08] MEDS ORDERED: ATROPINE SULFATE 1 MG/10 ML SYR ONE (11:39)
[2016-12-08] MEDS ORDERED: ATROPINE SULFATE 1 MG/10 ML SYR IVP PRN (11:43)
--- NOTE | 2016-12-08 12:45 | CPIP ---
[f rep st] INVASIVE CARDIAC PROCEDURE DATE OF PROCEDURE: 12/08/2016 PROCEDURE: 1. Coronary angiography. 2. Left ventriculography. INDICATION: 1. Acute coronary syndrome with negative troponin. 2. Abnormal nuclear stress test. ACCESS: The patient was prepped and draped in sterile fashion. 1% lidocaine was used to anesthetize the right inguinal region. A 6-[place]icar[place] introducer sheath was placed selectively into the right commo n femoral artery via modified Seldinger technique. CORONARY ANGIOGRAPHY: A 6-[place] JL4 was advanced to the left main coronary artery and images obtain ed. The left main coronary artery bifurcated into LAD and circumflex coronary arteries. The left ma in coronary artery appeared normal. The left anterior descending coronary artery gave rise to 1 prom inent diagonal branch. The left anterior descending coronary artery and its diagonal branch appeared normal. The circumflex coronary artery was a large vessel but was nondominant. Circumflex coronary artery appeared normal. A 6-[place] JR4 was advanced to the right coronary artery and images obtaine d. The right coronary artery was dominant. The right coronary artery appeared normal. LEFT VENTRICULOGRAPHY: A 6-[place] pigtail catheter was advanced into the left ventricle and images o btained. The left ventricle was normal in size and had normal systolic function. The estimated ejec tion fraction was 60%. COMPLICATIONS: None. CONCLUSIONS: 1. Normal coronary arteries. 2. Normal left ventricular size and systolic function. 3. Plan is for medical management. /[id number]/MODL
[2016-12-08] MEDS ORDERED: HEPARIN 10,000 UNIT/10 ML MDV IVP PRN (14:44)
[2016-12-08] MEDS ORDERED: HEPARIN 10,000 UNIT/10 ML MDV IVP ONE (14:44)
[2016-12-08] MEDS ORDERED: HEPARIN/DEXTROSE 500 ML IV SCH (14:45)
--- NOTE | 2016-12-08 15:36 | HOSPPROG ---
Hospitalist Progress Note Assessment/Plan: 66 yo F with PMH of DVT, HTN, HLD and family hx of early onset CAD presenting with chest pain # chest pain: with both typical and atypical features. Trops negative, no ischemic changes on ECG but stress test concerning for infarct and ischemia. Coronary angiography performed today and is clean without e/o CAD. Will continue with primary risk prevention with lipid/bp control. # DVT: warfarin held for cath and INR today 1.5, will resume coumadin with heparin gtt as bridge given recent cath and risk of bleeding. If no issues overnight will dc in am on coumadin/lovenox. # HTN: was quite hypertensive on arrival but since then BP has been in the low- normal range, will not start any anti-hypertensives at this point and have patient continue to f/u with pcp # HLD: started on atorvastatin, lipid panel here showing LDL of 139, patient very concerned that she needs genetic testing to see if she has a familial reason to have elevated cholesterol--explained that was likely not necessary # hypothyroid: continue synthroid, tsh appropriately suppressed # IP status care plan reviewed with cardiology as above. Subjective: no significant overnight events, patient currently feeling well, just tired post anesthesia Objective: Vital Signs Temp Pulse Resp BP Pulse Ox 36.3 C 68 13 120/77 96 12/08/16 15:25 12/08/16 15:25 12/08/16 15:25 12/08/16 15:25 12/08/16 15:25 Laboratory Results 12/08/16 03:28 12/08/16 03:28 12/07/16 12/08/16 12/09/16 05:59 05:59 05:59 Intake Total 350 Balance 350 PT 18.6 SEC (12.0-15.0) H 12/08/16 03:28 INR 1.55 (0.83-1.16) H 12/08/16 03:28 awake alert nad anicteric op clear rrr no mrg cta b soft nt nd no cce warm dry well perfused ICD10 Worksheet Patient Problems: Problems Problem Status Onset Chest pain Acute
[2016-12-08 15:45] LABS: ADD DIFF? NO; ADD MORPH? NO; ADD SCAN? NO; ATYPICAL LYMPHOCYTE FLAG 20 (0-99); FRAGMENT RBC FLAG 0 (0-99); HEMATOCRIT 38.1 % (38.0-47.0); HEMOGLOBIN 12.8 g/dL (12.6-16.3); LEFT SHIFT FLG 0 (0-99); LIPEMIA HEMOLYSIS FLAG 80 (0-99); MEAN CELL HEMOGLOBIN 30.8 pg (27.9-34.1); MEAN CELL HEMOGLOBIN CONCENTR. 33.6 g/dL (32.4-36.7); MEAN CELL VOLUME 91.6 fL (81.5-99.8); MEAN PLATELET VOLUME 10.7 fL (8.7-11.7); PLATELET CLUMPS FLAG 0 (0-99); PLATELET COUNT 143 10^3/uL (150-400); RED BLOOD CELL COUNT 4.16 10^6/uL (4.18-5.33); RED CELL DISTRIBUTION WIDTH 12.8 % (11.5-15.2)
[2016-12-08 15:58] LABS: INR 1.41 (0.83-1.16); PROTIME(PATIENT) 17.2 SEC (12.0-15.0)
[2016-12-08 15:59] LABS: APTT 29.7 SEC (23.0-38.0)
[2016-12-08] MEDS ORDERED: WARFARIN SODIUM 5 MG TAB PO ONE (16:00)
[2016-12-08] MEDS: traZODone 50 MG TAB PO SCH (23:00)
[2016-12-09] MEDS: LEVOTHYROXINE 88 MCG TAB PO SCH (07:08)
[2016-12-09 07:35] LABS: INR 1.42 (0.83-1.16); PROTIME(PATIENT) 17.3 SEC (12.0-15.0)
[2016-12-09 08:10] VITALS: TEMP 98.1
[2016-12-09] MEDS: CETIRIZINE 10 MG TAB PO SCH (10:01)
[2016-12-09] MEDS: CALCIUM CARBONATE 500 MG TAB PO SCH (10:02)
[2016-12-09] MEDS: buPROPion XL 150 MG TAB PO SCH (10:02)
[2016-12-09] MEDS: ATORVASTATIN CALCIUM 40 MG TAB PO SCH (10:02)
[2016-12-09] MEDS ORDERED: ENOXAPARIN 80 MG/0.8 ML SYR SC SCH (12:00)
[2016-12-09] MEDS ORDERED: ENOXAPARIN 60 MG/0.6 ML SYR SC SCH (12:00)
[2016-12-09 12:31] VITALS: BP 114/87; PULSE 90; RESP 12; O2SAT 91
--- NOTE | 2016-12-09 17:19 | ASDISCHSUM ---
Discharge Information Plan Status:Home with No Needs Medically Cleared to Leave:12/09/2016 Discharge Date:12/09/2016 02:58 PM CM D/C Disposition:Home, Routine, Self-Care ADT D/C Disposition:Home, Routine, Self-Care Projected Discharge Date:12/09/2016 12:00 AM Transportation at D/C:Family Discharge Delay Reason: Follow-Up Date:12/09/2016 12:00 AM Discharge Slot: Final Diagnosis: Placement Information Patient Contact Information Contact Name:BOB Relationship: Address:[address] [place] [address] City:[facility] Phone: [facility]/Zip Code:[place] [address] Email: Financial Information Financial Class:HMO and PPO Plans Primary Plan Desc:[employer] Primary Plan Number:[id number] Secondary Plan Desc: Secondary Plan Number: Assessment Information [facility] CM Progress Note CM Note CM Note Notes: 12/06/2016 Case Management Note: Met w/pt. 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 Plans for to take home at d/c. No case management d/c needs identified d/t pt age and activity levels prior to admission. Case Managment d/c poc: Home independent w/follow up as directed by . Date Signed: 12/06/2016 12:11 PM Electronically Signed By:Lurdes Vance RN Intervention Information
[2016-12-09 23:07] LABS: APTT 172.3 SEC (23.0-38.0)
== END 2016-12-09 14:58 | disposition home or self-care (01) | DRG 287 ==
LOC: F2W 16:44 → OBSVTOIN 12-07 14:59
PROVIDERS: ADMIT Internal Medicine; ATTEND Internal Medicine
PROC: B2151ZZ Fluoroscopy of Left Heart using Low Osmolar Contrast (ICD-10-PCS; principal; 2016-12-08)
PROC: B2111ZZ Fluoroscopy of Multiple Coronary Arteries using Low Osmolar Contrast (ICD-10-PCS; principal; 2016-12-08)
DX: I24.9 Acute ischemic heart disease, unspecified (principal); E03.9 Hypothyroidism, unspecified; E78.5 Hyperlipidemia, unspecified; I10 Essential (primary) hypertension; Z86.718 Personal history of other venous thrombosis and embolism; Z79.01 Long term (current) use of anticoagulants
CPT/HCPCS: 85520-90; A9500; G0378; J0461; J1644; J1650; J2250; J2785; J3010; Q9967

== ENCOUNTER → 2017-08-15 | Outpatient (CLI) | payer OTHER | LOC: FIMAGING 07:59 | PROVIDERS: ATTEND Family Medicine | DX: Z12.31 Encounter for screening mammogram for malignant neoplasm of breast (principal) ==

== ENCOUNTER 2018-07-18 15:11 | Emergency (ER) | payer OTHER, MEDICARE ==
[2018-07-18] MEDS ORDERED: NS 1,000 ML IV ONE ×2 (15:30→15:44)
[2018-07-18] MEDS ORDERED: ONDANSETRON 4 MG/2 ML VIAL IVP ONE (15:30)
--- NOTE | 2018-07-18 15:46 | EDPHY ---
H & P Stated Complaint: high BP, headche, + nausea Time Seen by Provider: 07/18/18 15:31 HPI/ROS: CHIEF COMPLAINT: Headache, nausea, intermittent diarrhea and constipation HISTORY OF PRESENT ILLNESS: Patient presents the ED with headache, nausea, intermittent diarrhea and constipation for the past week. The patient denies any recent antibiotic use. She complains of a bifrontal headache. She denies any fever or neck stiffness. The patient denies any focal numbness or weakness. She denies any recent travel outside the [place]. Patient does have a history of sinus pressure during secondary to seasonal allergies. The patient denies any history of fall or trauma. The patient does complain of mild abdominal bloating. REVIEW OF SYSTEMS: A comprehensive 10 point review of systems is otherwise negative aside from elements mentioned in the history of present illness. Source: Patient Exam Limitations: No limitations - Personal History Tetanus Vaccine Date: unknown - Medical/Surgical History Hx Asthma: No Hx Chronic Respiratory Disease: No Hx Diabetes: No Hx Cardiac Disease: No Hx Renal Disease: No Hx Cirrhosis: No Hx Alcoholism: No Hx HIV/AIDS: No Hx Splenectomy or Spleen Trauma: No Other PMH: dvt. hyperparathyroid - Social History Smoking Status: Never smoked - Physical Exam Exam: General Appearance: Alert, no distress Head: Normocephalic, atraumatic, significant left frontal sinus and maxillary sinus tenderness noted on exam. Eyes: Pupils equal and round no pallor or injection ENT, Mouth: Mucous membranes moist, mild tender left anterior cervical chain adenopathy noted Respiratory: There are no retractions, lungs are clear to auscultation Cardiovascular: Regular rate and rhythm Gastrointestinal: Abdomen is soft and nontender, no masses, bowel sounds normal Neurological: A&O, normal motor function, normal sensory exam, normal cranial nerves Skin: Warm and dry, no rashes Musculoskeletal: Neck is supple nontender Extremities: symmetrical, full range of motion Psychiatric: Patient is oriented X 3, there is no agitation Constitutional: Initial Vital Signs Temperature (C) 36.5 C 07/18/18 15:17 Heart Rate 102 H 07/18/18 15:17 Respiratory Rate 16 07/18/18 15:17 Blood Pressure 217/124 H 07/18/18 15:17 O2 Sat (%) 97 07/18/18 15:17 O2 Delivery Mode Room Air Allergies/Adverse Reactions: Trees & grasses Allergy (Intermediate, Uncoded 06/30/10 11:28) allergic rhinitis Home Medications: Medication Instructions Recorded Bupropion HCl [Wellbutrin XL 300mg] 300 mg PO DAILY 03/23/12 Alendronate Sodium [Fosamax 70 MG 70 mg PO STEWART@0700 12/05/16 (*)] Calcium Carbonate [Calcium] 1,000 mg PO DAILY 12/05/16 Cetirizine [ZyrTEC 10 mg (*)] 10 mg PO DAILY 12/05/16 Herbals/Supplements -Info Only 1 ea PO DAILY 12/05/16 Levothyroxine [Synthroid 88 mcg 88 mcg PO DAILY06 12/05/16 (*)] Warfarin Sodium [Coumadin 5MG (*)] 7.5 mg PO HS 12/05/16 traZODone [traZODONE 50MG (*)] 50 mg PO HS 12/05/16 Atorvastatin Calcium [Lipitor 40 40 mg PO DAILY #30 tab 12/09/16 mg (*)] Amoxicillin/Clavulanate Pot 875 mg PO BID #20 tab 07/18/18 [Augmentin 875 mg tablet] Ondansetron Odt [Zofran Odt] 4 mg PO Q4PRN PRN #20 tab 07/18/18 oxyCODONE/APAP 5/325 [Percocet 1 - 2 tab PO Q6-8PRN PRN #20 tab 07/18/18 5/325 (RX)] Medical Decision Making - Diagnostics Imaging Results: Imaging Impressions Head CT 07/18/18 16:20 Impression: 1. Normal CT brain without contrast. 2. Severe right maxillary and left sphenoid sinusitis. 3. No acute hemorrhage or mass effect. Findings and recommendations discussed with Emergency Department physician, Mars Zavala at 1655 hour, 07/18/2018. Final report concurs with initial preliminary interpretation. ED Course/Re-evaluation: Patient presents the ED with high blood pressure and headache with some sinus symptoms increasing over the past several days. Given the fact she is anticoagulated CT scan of the head was obtained which demonstrates no evidence of intracranial hemorrhage. Patient is noted to have fairly dense left frontal sinusitis. The patient's blood pressure did improve in the emergency department. Is currently 160/90 at 6:00 p.m.. The patient is feeling better after receiving antiemetics and IV fluids. She is comfortable going home with antibiotics and pain medications. She does understand return to the ED for markedly worsening headache, the development of any focal neurologic symptoms, vomiting, symptoms of worsening dehydration or other concerns. Differential Diagnosis: Differential diagnosis considered includes sinusitis, intracranial hemorrhage, hypertensive emergency, dehydration, metabolic derangement - Data Points Laboratory Results: Laboratory Results 07/18/18 15:40 07/18/18 15:40 07/18/18 07/18/18 07/18/18 15:40 15:40 15:40 WBC 5.93 10^3/uL 10^3/uL (3.80-9.50) RBC 5.02 10^6/uL 10^6/uL (4.18-5.33) Hgb 15.2 g/dL g/dL (12.6-16.3) Hct 45.4 % % (38.0-47.0) MCV 90.4 fL fL (81.5-99.8) MCH 30.3 pg pg (27.9-34.1) MCHC 33.5 g/dL g/dL (32.4-36.7) RDW 12.9 % % (11.5-15.2) Plt Count 179 10^3/uL 10^3/uL (150-400) MPV 10.0 fL fL (8.7-11.7) Neut % (Auto) 70.6 % % (39.3-74.2) Lymph % (Auto) 20.2 % % (15.0-45.0) Ray % (Auto) 7.3 % % (4.5-13.0) Eos % (Auto) 0.7 % % (0.6-7.6) Baso % (Auto) 1.0 % % (0.3-1.7) Nucleat RBC Rel Count 0.0 % % (0.0-0.2) Absolute Neuts (auto) 4.19 10^3/uL 10^3/uL (1.70-6.50) Absolute Lymphs (auto) 1.20 10^3/uL 10^3/uL (1.00-3.00) Absolute Monos (auto) 0.43 10^3/uL 10^3/uL (0.30-0.80) Absolute Eos (auto) 0.04 10^3/uL 10^3/uL (0.03-0.40) Absolute Basos (auto) 0.06 10^3/uL 10^3/uL (0.02-0.10) Absolute Nucleated RBC 0.00 10^3/uL 10^3/uL (0-0.01) Immature Gran % 0.2 % % (0.0-1.1) Immature Gran # 0.01 10^3/uL 10^3/uL (0.00-0.10) PT 22.7 SEC H SEC (12.0-15.0) INR 2.12 H (0.83-1.16) Sodium 136 mEq/L mEq/L (135-145) Potassium 3.7 mEq/L mEq/L (3.5-5.2) Chloride 102 mEq/L mEq/L (97-110) Carbon Dioxide 22 mEq/l mEq/l (22-31) Anion Gap 12 mEq/L mEq/L (6-14) BUN 13 mg/dL mg/dL (7-23) Creatinine 0.8 mg/dL mg/dL (0.6-1.0) Estimated GFR > 60 Glucose 118 mg/dL H mg/dL (70-100) Calcium 9.8 mg/dL mg/dL (8.5-10.4) Total Bilirubin 1.2 mg/dL mg/dL (0.1-1.4) Conjugated Bilirubin 0.0 mg/dL mg/dL (0.0-0.5) Unconjugated Bilirubin 1.2 mg/dL H mg/dL (0.0-1.1) AST 27 IU/L IU/L (14-46) ALT 36 IU/L IU/L (9-52) Alkaline Phosphatase 59 IU/L IU/L (38-126) Total Protein 7.7 g/dL g/dL (6.3-8.2) Albumin 4.8 g/dL g/dL (3.5-5.0) Lipase 67 IU/L IU/L (23-300) Medications Given: Discontinued Medications Sodium Chloride (Ns) 1,000 mls @ 0 mls/hr IV EDNOW ONE; Wide Open PRN Reason: Protocol Stop: 07/18/18 15:31 Last Admin: 07/18/18 15:42 Dose: 1,000 mls Sodium Chloride (Ns) 1,000 mls @ 0 mls/hr IV EDNOW ONE; Wide Open PRN Reason: Protocol Stop: 07/18/18 15:45 Last Admin: 07/18/18 16:03 Dose: 1,000 mls Morphine Sulfate (Morphine) 4 mg IVP EDNOW ONE Stop: 07/18/18 15:47 Last Admin: 07/18/18 16:03 Dose: Not Given Ondansetron HCl (Zofran) 4 mg IVP EDNOW ONE Stop: 07/18/18 15:31 Last Admin: 07/18/18 15:42 Dose: 4 mg Departure - Departure Disposition: Home, Routine, Self-Care Clinical Impression: Sinusitis Condition: Good Instructions: Sinusitis (ED) Additional Instructions: 1. Please follow-up with your primary care provider for recheck in the next 2-3 days. 2. Please return to the ED for markedly worsening headache, numbness, weakness or other concerns. 3. Please take antibiotics as directed. Percocet as needed for pain. Zofran as needed for nausea. Referrals: Addie Colbert MD [Primary Care Provider] - As per Instructions
[2018-07-18 16:08] LABS: PLATELET COUNT 179 10^3/uL (150-400)
[2018-07-18 16:15] LABS: INR 2.12 (0.83-1.16); PROTIME(PATIENT) 22.7 SEC (12.0-15.0)
[2018-07-18 17:26] VITALS: BP 177/100
== END 2018-07-18 18:05 | disposition home or self-care (01) ==
DX: J32.0 Chronic maxillary sinusitis (principal); J32.3 Chronic sphenoidal sinusitis; E86.9 Volume depletion, unspecified
CPT/HCPCS: 70450; 96361; 96374; 99285; J2405

== ENCOUNTER → 2018-08-16 | Outpatient (CLI) | payer OTHER, MEDICARE | LOC: FIMAGING 13:54 ==

== ENCOUNTER 2018-08-28 15:02 | Emergency (ER) | payer OTHER, MEDICARE | END 2018-08-28 17:38 | disposition home or self-care (01) ==